=== PATIENT | female | born 2000 | race Caucasian/White ===

== ENCOUNTER 2022-11-08 09:50 | Emergency (ER) | payer OTHER, SELFPAY ==
--- NOTE | ~2022-11-08 | CT_ITS ---
EXAMINATION: CT ABDOMEN AND PELVIS WITH CONTRAST CLINICAL INFORMATION: Abdominal pain. COMPARISON: None available. TECHNIQUE: Multidetector volumetric images were obtained from the superior aspect of the liver through the pubic symphysis following administration 85 mL of Omnipaque 350 intravenous contrast. Sagittal and coronal reformatted images were obtained on the technologist's workstation. Oral contrast: No This CT examination was performed using dose optimization techniques as appropriate, variously including the following: *Automated exposure control *Adjustment of mA and/or kV according to patient size (this includes techniques or standardized protocols for targeted exams where dose is matched to indication/reason for exam; i.e. extremities or head) *Use of iterative reconstruction technique DLP: 262 mGy-cm FINDINGS: LUNG BASES: The lung bases are clear. The heart size is normal. LIVER, GALLBLADDER, AND BILIARY TREE: The liver is normal in size, shape, and attenuation. No focal hepatic lesion or biliary ductal dilatation is present. The gallbladder is unremarkable with no evidence of radiopaque gallstones, gallbladder wall thickening, or obvious pericholecystic inflammatory changes. PANCREAS: Unremarkable. SPLEEN: Unremarkable. ADRENAL GLANDS: Unremarkable. KIDNEYS AND URETERS: The kidneys are normal in size, shape, and attenuation. No hydronephrosis, hydroureter, or calculi seen. No perinephric stranding. BLADDER: Unremarkable. GASTROINTESTINAL TRACT: The small and large bowel are unremarkable. The appendix is unremarkable. ABDOMINAL WALL: No significant hernia is appreciated. LYMPH NODES: Normal. VASCULAR: Unremarkable. PELVIC VISCERA: There is an anteverted uterus with IUD well located within the endometrial canal. The bladder is nondistended. There is a right adnexal 4 cm cyst likely ovarian origin. It measures 13 Hounsfield units.. The left adnexa is unremarkable. There is minimal free fluid in the pelvis. OSSEOUS STRUCTURES: Mild degenerative disc changes at L5-S1 disc level. Otherwise rest of the lumbosacral spine is unremarkable CT/CT abdomen pelvis w IV con IMPRESSION: 1. No acute intra-abdominal process seen. 2. 4 cm right adnexal cyst likely ovarian origin. There is minimal free fluid in the pelvis. IUD is in correct position within the endometrial canal. Fleischner guidelines were followed.
[2022-11-08 10:01] VITALS: BP 112/72; PULSE 63; RESP 17; TEMP 36.9; O2SAT 98; BMI 18.3
[2022-11-08 10:41] LABS: Hematocrit 45.7 % (37.0-47.0); Hemoglobin 15.6 g/dl (12.0-16.0); Mean Corpuscular HGB Conc 34.1 g/dl (31.0-35.0); Mean Corpuscular Hemoglobin 30.7 pg (27.0-33.0); Mean Platelet Volume 11.5 fL (9.4-12.3); Platelet Count 223 X10*3/uL (160-400); Red Blood Count 5.08 X10*6/uL (4.20-5.50); Red Cell Distribution Width 12.3 % (11.0-16.0)
[2022-11-08 10:42] LABS: Appearance Urine Cloudy; Color Urine Dark Yellow; Glucose Urine UA Negative (Negative); Leukocyte Esterase Urine Trace (Negative); Nitrite Urine Negative (Negative); PH 5.5 (5.0-9.0); Specific Gravity - Urine >= 1.030 (1.005-1.025); UMIC TRIGGER UACC YES; Urine Blood Negative (Negative); Urine Ketones Trace mg/dL (Negative); Urine Protein Trace mg/dL (Neg-Trace)
[2022-11-08 10:43] LABS: UPreg QC Valid YES; Urine Pregnancy NEGATIVE (NEGATIVE)
[2022-11-08 10:44] LABS: Bacteria Urine 4+ (None Seen); Hyaline Casts Urine 0-2 /LPF (0-2); RBC Urine 0-2 /HPF (0-2); UACC Culture Trigger YES
[2022-11-08 10:45] LABS: WBC ABN SCTR FOR CBC 1
[2022-11-08 11:08] LABS: Alanine Aminotransferase 12 U/L (0-31); Albumin Level 4.6 g/dL (3.5-5.0); Alkaline Phosphatase 53 U/L (39-117); Anion Gap 11 (12-20); Aspartate Amino Transferase 12 U/L (5-31); Atypical Lymphs Percent Manual 1 % (0-6); Band Neutrophils Percent 0 % (3-5); Bilirubin Direct 0.2 mg/dL (0.0-0.5); Bilirubin Total 0.7 mg/dL (0.0-1.0); Blood Urea Nitrogen 14 mg/dL (9-16); Calcium 9.5 mg/dL (8.4-10.2); Carbon Dioxide 27 mmol/L (22-29); Chloride 105 mmol/L (96-108); Creatinine Clr Calc Pharmacy 77.3; Eosinophils Percent Manual 2 % (0-4); Estimated Glomerular Filt Rate > 60; Glucose Random 110 mg/dL (60-115); Lipase 21 U/L (8-78); Lymphocytes Percent Manual 8 % (20-40); Monocytes Percent Manual 5 % (2-11); Neutrophils Percent Manual 84 % (45-73); Potassium 4.3 mmol/L (3.3-5.1); Sodium 139 mmol/L (135-145); Total Protein 7.6 g/dL (6.5-8.0)
[2022-11-08 11:09] LABS: Platelet Estimate NORMAL (NORMAL); Platelet Morphology Comment NORMAL; RBC Morphology NORMAL
[2022-11-08 11:29] LABS: Atypical Lymph Absolute Manual 0.2 x10*3/uL; Eosinophils Absolute Manual 0.4 X10*3/uL (0.0-0.4); Lymphocytes Absolute Manual 1.6 X10*3/uL (1.2-4.9); Neutrophils Absolute Manual 16.6 X10*3/uL (2.0-8.3); White Blood Count 19.8 X10*3/uL (4.8-10.8)
[2022-11-08] MEDS: Ondansetron ODT 4 MG TAB.RAPDIS TRANSLINGU (11:52)
--- NOTE | 2022-11-08 12:38 | ED.GENADULT ---
HPI - General Adult General Chief complaint: Abdominal Pain Stated complaint: Severe abd pain Time Seen by Provider: 11/08/22 12:38 Source: patient and family (mother) Mode of arrival: wheelchair Limitations: no limitations History of Present Illness HPI narrative: Patient is a 21 year old assigned female at with no reported medical history presenting to the emergency department today with abdominal pain and nausea. Patient states that since last night she has had right sided abdominal pain and nausea. Patient denies any dizziness, lightheadedness, vomiting, fever, chills, blurry vision, double vision, loss of vision, chest pain, difficulty breathing, shortness of breath, back pain, night sweats, pain with urination, increased urinary frequency, increased urinary urgency, blood in her urine or stool, syncope or a near syncopal episode, recent trauma or falls, bowel incontinence, bladder incontinence, bowel retention, bladder retention, or any other complaints at this time. Onset (ago): day(s) (1) Location: abdomen Radiation: non-radiation Severity: mild Severity scale (1-10): 3 Pain Consistency: constant Relieving factors: none Exacerbating factors: none Associated symptoms: nausea/vomiting Treatments prior to arrival: none Related Data Allergies Allergy/AdvReac Type Severity Reaction Status Date / Time amoxicillin Allergy Rash Verified 11/08/22 10:01 Penicillins [PCN] Allergy Hives Verified 11/08/22 10:00 Review of Systems Constitutional: Constitutional: Reports no additional constitutional complaints, Denies chills, Denies fever(s) and Denies night sweats Eyes: Eyes: Reports no additional eye complaints, Denies blurry vision, Denies change in vision, Denies diplopia, Denies eye discharge, Denies loss of vision and Denies eye pain ENT: Denies dizziness Cardiovascular: Cardiovascular: Reports no additional cardiovascular complaints, Denies chest pain, Denies lightheadedness, Denies Loss of Consciousness and Denies dyspnea Respiratory: Respiratory: Reports no additional respiratory complaints and Denies dyspnea Gastrointestinal: Gastrointestinal: Reports no additional gastrointestinal complaints, Reports abdominal pain, Denies melena, Denies hematochezia, Denies change in bowel habits, Denies change in stool character and Reports nausea Genitourinary: Genitourinary: Denies hematuria, Denies urinary frequency, Denies dysuria, Denies urinary incontinence, Denies urinary hesitancy and Denies urinary urgency Musculoskeletal: Musculoskeletal: Reports no additional musculoskeletal complaints, Denies numbness and Denies tingling Neurologic: Denies dizziness, Denies loss of vision, Denies numbness and Denies tingling Psychiatric: Psychiatric: Reports no additional psychiatric complaints Endocrine: Endocrine: Reports no additional endocrine complaints Hematologic/Lymphatic: Hematologic/Lymphatic: Reports no additional hematologic/lymphatic complaints Allergic/Immunologic: Allergic/Immunologic: Reports no additional allergic/immunologic complaints PMFSH Past Medical History Attestation statement: The following information was validated with the patient. Source: old records reviewed and nursing notes reviewed Social History Social History Advance Directives: No Advance Directives Information Provided: Yes Physical Exam ED Vital Signs: Vital Signs - 24 hr 11/08/22 10:01 Temperature 98.4 F Pulse Rate 63 Respiratory Rate 17 Blood Pressure 112/72 Pulse Oximetry 98 Oxygen Delivery Method Room Air BMI result Body Mass Index 18.3 Const General: cooperative, no acute distress, alert and awake Nutritional Appearance: well nourished Orientation/consciousness: patient oriented x3 Limitations: no limitations HENMT Head: Yes normal to inspection and Yes atraumatic Ears: hearing grossly normal bilaterally and external ears normal General nose exam: Normal external nose present, no nasal discharge noted and no epistaxis Face and sinus: Yes normal facial exam, No abrasion and No laceration Mouth: Normal oral and palatal mucosa present, no drooling and no muffled voice Eyes General: appearance normal, both eyes and all related structures Periorbital: periorbital findings normal Eyelids: Yes eyelids normal Conjunctivae: conjunctivae normal Pupils: Equal, round and reactive pupils present EOM: EOMs intact bilaterally Neck Neck: Yes normal visual inspection, Yes full ROM and Yes no lymphadenopathy Chest Chest palpation & inspection: normal inspection of the chest Resp Effort & Inspection: normal respiratory effort and able to speak in complete sentences Auscultation: clear to auscultation bilaterally Cardio Rate: regular rate Rhythm: regular rhythm GI Inspection: Yes normal to inspection Palpation (GI): Soft to palpation, not firm, Tenderness to palpation present (GI), no guarding and not rigid Neuro General: patient oriented x3 and moves all extremities Cranial nerves: Yes Equal, round and reactive pupils present Cognition (Neuro): normal cognition Motor exam (neuro): 5/5 motor strength present throughout Sensory Exam: Normal double simultaneous stimulation for sensation Coordination: [id number] test normal Extrem General: Yes normal to inspection, Yes full ROM and Yes capillary refill normal Psych Appearance: grossly normal Mental Status: mental status grossly normal Affect: normal affect Attitude: cooperative Thought process: Normal thought process present Thought content: Normal thought content present Insight: Good insight present (Psych) Medications Administered Discontinued Medications Generic Name Dose Route Start Last Admin Trade Name Ladi PRN Reason Stop Dose Admin Iohexol 85 ml 11/08/22 13:33 11/08/22 13:33 Iohexol 350 Mg/Ml 100 Ml Infus..Btl IV 11/08/22 13:34 85 ml ONCE ONE Administration Lorazepam 1 mg 11/08/22 12:53 11/08/22 13:02 Lorazepam 2 Mg/Ml Vial IVPUSH 11/08/22 12:54 1 mg ONCE ONE Administration Morphine Sulfate 4 mg 11/08/22 12:43 11/08/22 13:02 Morphine Sulfate 4 Mg/Ml Cartridge IVPUSH 11/08/22 12:44 4 mg ONCE ONE Administration Protocol Ondansetron HCl 4 mg 11/08/22 11:44 11/08/22 11:52 Ondansetron Odt 4 Mg Tab.Rapdis TRANSLINGU 11/08/22 11:45 4 mg ONCE ONE Administration Ondansetron HCl 4 mg 11/08/22 12:43 11/08/22 13:02 Ondansetron Hcl 4 Mg/2 Ml Vial IVPUSH 11/08/22 12:44 4 mg ONCE ONE Administration Medical Decision Making Medical Decision Making MDM Narrative: Patient is a 21 year old assigned female at with no reported medical history presenting to the emergency department today with abdominal pain. Patient's physical exam showed diffuse abdominal tenderness but was otherwise unremarkable. Patient's blood work showed an elevated WBC count but was otherwise unremarkable. Patient's urine showed no acute process. Patient's abdominal CT showed an ovarian cyst with surrounding free fluid. I explained my physical exam findings as well as all test results to the patient and the patient's mother. I answered all questions asked by the patient and the patient's mother. I stressed the importance of the patient taking her medication as prescribed. I stressed the importance of the patient following up with her primary care provider and an OBGYN. I stressed the importance of the patient returning to the emergency department immediately if her symptoms were to worsen or if she were to develop any dizziness, shortness of breath, difficulty breathing, chest pain, blurry vision, loss of vision, nausea, vomiting, abdominal pain, fever, chills, back pain, or any other complaints. Patient and the patient's mother verbalized agreement and understanding with this treatment plan and discharge. Differential Diagnosis Differential Diagnoses: The differential diagnosis associated with the presentation includes abdominal pain, ovarian cyst Lab Data MDM Lab Attestation statement: I reviewed the patient's lab results. 11/08/22 10:28 11/08/22 10: Labs: Lab Results 11/08/22 11/08/22 11/08/22 Range/Units 10:25 10:25 10: WBC 19.8 H (4.8-10.8) X10*3/uL RBC 5.08 (4.20-5.50) X10*6/uL Hgb 15.6 (12.0-16.0) g/dl Hct 45.7 (37.0-47.0) % MCV 90.0 (80.0-98.0) fL MCH 30.7 (27.0-33.0) pg MCHC 34.1 (31.0-35.0) g/dl RDW 12.3 (11.0-16.0) % Plt Count 223 (160-400) X10*3/uL MPV 11.5 (9.4-12.3) fL Immature Gran % (Auto) Cancelled Neut % (Auto) Cancelled Lymph % (Auto) Cancelled Josephine % (Auto) Cancelled Eos % (Auto) Cancelled Baso % (Auto) Cancelled Lymph # (Auto) Cancelled Josephine # (Auto) Cancelled Eos # (Auto) Cancelled Baso # (Auto) Cancelled Abs Immat Gran (auto) Cancelled Absolute Neuts (auto) Cancelled Absolute Nucleated RBC 0.000 (0.0-0.012) X10*3/uL Nucleated RBC % (auto) 0.0 (0.0-0.2) /100WBC Neutrophils % (Manual) 84 H (45-73) % Band Neutrophils % 0 L (3-5) % Lymphocytes % (Manual) 8 L (20-40) % Atypical Lymphs % (Man) 1 (0-6) % Monocytes % (Manual) 5 (2-11) % Eosinophils % (Manual) 2 (0-4) % Abs Neuts (Manual) 16.6 H (2.0-8.3) X10*3/uL Lymphocytes # (Manual) 1.6 (1.2-4.9) X10*3/uL Atyp Lymphs # (Manual) 0.2 x10*3/uL Monocytes # (Manual) 1.0 (0.1-1.2) X10*3/uL Eosinophils # (Manual) 0.4 (0.0-0.4) X10*3/uL Platelet Estimate NORMAL (NORMAL) Plt Morphology Comment NORMAL RBC Morphology NORMAL Sodium (135-145) mmol/L Potassium (3.3-5.1) mmol/L Chloride (96-108) mmol/L Carbon Dioxide (22-29) mmol/L Anion Gap (12-20) BUN (9-16) mg/dL Creatinine (0.5-1.4) mg/dL Estim Creat Clear Calc Estimated GFR Random Glucose (60-115) mg/dL Calcium (8.4-10.2) mg/dL Total Bilirubin (0.0-1.0) mg/dL Direct Bilirubin (0.0-0.5) mg/dL AST (5-31) U/L ALT (0-31) U/L Alkaline Phosphatase (39-117) U/L Total Protein (6.5-8.0) g/dL Albumin (3.5-5.0) g/dL Lipase (8-78) U/L Urine Color Dark Yellow Urine Appearance Cloudy Urine pH 5.5 (5.0-9.0) Ur Specific Jenison >= 1.030 H (1.005-1.025) Urine Protein Trace (Neg-Trace) mg/dL Urine Glucose (UA) Negative (Negative) mg/dL Urine Ketones Trace (Negative) mg/dL Urine Blood Negative (Negative) Urine Nitrite Negative (Negative) Ur Leukocyte Esterase Trace H (Negative) Urine RBC 0-2 (0-2) /HPF Urine WBC 6-10 H (0-5) /HPF Ur Squamous Epith Cells 11-20 (0-2) /HPF Urine Bacteria 4+ (None Seen) Hyaline Casts 0-2 (0-2) /LPF Urine Test NEGATIVE (NEGATIVE) 11/08/22 Range/Units 10:28 WBC (4.8-10.8) X10*3/uL RBC (4.20-5.50) X10*6/uL Hgb (12.0-16.0) g/dl Hct (37.0-47.0) % MCV (80.0-98.0) fL MCH (27.0-33.0) pg MCHC (31.0-35.0) g/dl RDW (11.0-16.0) % Plt Count (160-400) X10*3/uL MPV (9.4-12.3) fL Immature Gran % (Auto) Neut % (Auto) Lymph % (Auto) Josephine % (Auto) Eos % (Auto) Baso % (Auto) Lymph # (Auto) Josephine # (Auto) Eos # (Auto) Baso # (Auto) Abs Immat Gran (auto) Absolute Neuts (auto) Absolute Nucleated RBC (0.0-0.012) X10*3/uL Nucleated RBC % (auto) (0.0-0.2) /100WBC Neutrophils % (Manual) (45-73) % Band Neutrophils % (3-5) % Lymphocytes % (Manual) (20-40) % Atypical Lymphs % (Man) (0-6) % Monocytes % (Manual) (2-11) % Eosinophils % (Manual) (0-4) % Abs Neuts (Manual) (2.0-8.3) X10*3/uL Lymphocytes # (Manual) (1.2-4.9) X10*3/uL Atyp Lymphs # (Manual) x10*3/uL Monocytes # (Manual) (0.1-1.2) X10*3/uL Eosinophils # (Manual) (0.0-0.4) X10*3/uL Platelet Estimate (NORMAL) Plt Morphology Comment RBC Morphology Sodium 139 (135-145) mmol/L Potassium 4.3 (3.3-5.1) mmol/L Chloride 105 (96-108) mmol/L Carbon Dioxide 27 (22-29) mmol/L Anion Gap 11 L (12-20) BUN 14 (9-16) mg/dL Creatinine 0.81 (0.5-1.4) mg/dL Estim Creat Clear Calc 77.3 Estimated GFR > 60 Random Glucose 110 (60-115) mg/dL Calcium 9.5 (8.4-10.2) mg/dL Total Bilirubin 0.7 (0.0-1.0) mg/dL Direct Bilirubin 0.2 (0.0-0.5) mg/dL AST 12 (5-31) U/L ALT 12 (0-31) U/L Alkaline Phosphatase 53 (39-117) U/L Total Protein 7.6 (6.5-8.0) g/dL Albumin 4.6 (3.5-5.0) g/dL Lipase 21 (8-78) U/L Urine Color Urine Appearance Urine pH (5.0-9.0) Ur Specific Jenison (1.005-1.025) Urine Protein (Neg-Trace) mg/dL Urine Glucose (UA) (Negative) mg/dL Urine Ketones (Negative) mg/dL Urine Blood (Negative) Urine Nitrite (Negative) Ur Leukocyte Esterase (Negative) Urine RBC (0-2) /HPF Urine WBC (0-5) /HPF Ur Squamous Epith Cells (0-2) /HPF Urine Bacteria (None Seen) Hyaline Casts (0-2) /LPF Urine Test (NEGATIVE) Independent Interpretation I performed an independent interpretation of an: CT Scan Interpretation: My interpretation is in agreement with the radiologist's impression of this imaging study. EXAMINATION: CT ABDOMEN AND PELVIS WITH CONTRAST? CLINICAL INFORMATION: Abdominal pain.? COMPARISON: None available. ? TECHNIQUE: Multidetector volumetric images were obtained from the superior aspect of the liver through the pubic symphysis following administration 85 mL of Omnipaque 350 intravenous contrast. Sagittal and coronal reformatted images were obtained on the technologist's workstation.? Oral contrast: No This CT examination was performed using dose optimization techniques as appropriate, variously including the following: *Automated exposure control *Adjustment of mA and/or kV according to patient size (this includes techniques or standardized protocols for targeted exams where dose is matched to indication/reason for exam; i.e. extremities or head) *Use of iterative reconstruction technique DLP: 262 mGy-cm FINDINGS: LUNG BASES: The lung bases are clear. The heart size is normal.? LIVER, GALLBLADDER, AND BILIARY TREE: The liver is normal in size, shape, and attenuation. No focal hepatic lesion or biliary ductal dilatation is present. The gallbladder is unremarkable with no evidence of radiopaque gallstones, gallbladder wall thickening, or obvious pericholecystic inflammatory changes.? PANCREAS: Unremarkable.? SPLEEN: Unremarkable.? ADRENAL GLANDS: Unremarkable.? KIDNEYS AND URETERS: The kidneys are normal in size, shape, and attenuation. No hydronephrosis, hydroureter, or calculi seen. No perinephric stranding. ? BLADDER: Unremarkable.? GASTROINTESTINAL TRACT: The small and large bowel are unremarkable. The appendix is unremarkable.? ABDOMINAL WALL: No significant hernia is appreciated.? LYMPH NODES: Normal. VASCULAR: Unremarkable. PELVIC VISCERA: There is an anteverted uterus with IUD well located within the endometrial canal. The bladder is nondistended. There is a right adnexal 4 cm cyst likely ovarian origin. It measures 13 Hounsfield units.. The left adnexa is unremarkable. There is minimal free fluid in the pelvis.? OSSEOUS STRUCTURES: Mild degenerative disc changes at L5-S1 disc level. Otherwise rest of the lumbosacral spine is unremarkable? CT/CT abdomen pelvis w IV con IMPRESSION: 1.? No acute intra-abdominal process seen. 2.? 4 cm right adnexal cyst likely ovarian origin. There is minimal free fluid in the pelvis. IUD is in correct position within the endometrial canal. ? Fleischner guidelines were followed. Dictated By: Yusef Sevilla MD Signed By: Electronically signed by Yusef Sevilla MD 11/08/22 2735 Independent Historian Clinical information obtained from an independent historian. History obtained from or confirmed by: Parent (patient's mother) Discharge Plan Discharge Clinical Impression: Ovarian cyst Patient Disposition: Home, Self-Care Instructions: Ovarian Cyst (ED) Additional Instructions: Follow up with your primary care provider and an OBGYN. Return to the emergency department immediately if your symptoms worsen or if you develop any dizziness, shortness of breath, difficulty breathing, chest pain, blurry vision, loss of vision, nausea, vomiting, abdominal pain, fever, chills, back pain, or any other complaints. Referrals: Demi Oden PA-C [Primary Care Provider] - Georges Forbes MD [Physician] - (Call to establish and follow up with an OBGYN. ) Stand Alone Forms: Work/School Release Print Language: Turkish
[2022-11-08] MEDS: Morphine Sulfate 4 MG/ML CARTRIDGE IVPUSH (13:02)
[2022-11-08] MEDS: LORazepam 2 MG/ML VIAL 1 MG IVPUSH (13:02)
[2022-11-08] MEDS: ondansetron HCL 4 MG/2 ML VIAL IVPUSH (13:02)
[2022-11-08] MEDS: iohexoL 350 MG/ML 100 ML INFUS..BTL 85 ML IV (13:33)
[2022-11-08] MEDS: Ketorolac Tromethamine 15 MG/ML VIAL IVPUSH (15:03)
== END 2022-11-08 15:23 | disposition home or self-care (01) ==
PROVIDERS: Emergency Provider Emergency Medicine; PCP Physician Assistant Medical
DX: N83.201 Unspecified ovarian cyst, right side (principal); R10.9 Unspecified abdominal pain
CPT/HCPCS: 36415; 74177; 80048; 80076; 81001; 81025; 83690; 85007; 85027; 87086; 96374; 96375; 96376; 99284; J1885; J2060; J2270; J2405; Q9967